=== PATIENT | male | born 1950 | race Caucasian/White ===

== ENCOUNTER → 2018-10-05 | Outpatient (CLI) | payer OTHER ==
--- NOTE | 2018-10-05 16:11 | Diagnostic Imaging Report ---
CT MAXIO FAC/PARANAS WO HISTORY: Chronic sinusitis COMPARISON: None. TECHNIQUE: CT of the sinuses was performed without intravenous contrast. Coronal and sagittal reformations were created. One or more of the following dose reduction techniques were used: Automated exposure control, adjustment of the mA and/or kV according to patient size, and/or utilization of iterative reconstruction technique. DISCUSSION: There is mild mucosal thickening along the bilateral maxillary sinus floors, right greater than left. Associated dental implants slightly protrude into the bilateral maxillary sinuses. Otherwise, the paranasal sinuses, major drainage pathways, and nasal cavities are clear. Other: Nasal septum: At midline. Agger Nasi: Clear bilaterally. Turbinates: Non-aerated bilaterally. [place] cells: None. Lamina papyracea: Mild deformity of the right lamina papyracea may be from remote trauma. Small amount of intraorbital fat and the right medial rectus muscle slightly protrude into the lamina papyracea defect. Cribriform plates: Symmetric. Up to 4 mm deep to the fovea ethmoidalis. Olfactory recesses: Clear. Optic canals: Not dehiscent. [place]odi cells: None. Sphenoid sinuses: The lateral recesses are not aerated. The sphenoid septum is deviated to the right and inserts on the right internal carotid artery osseous covering. The internal carotid arteries slightly bulge into the sphenoid sinuses. The internal carotid arteries are from the sphenoid sinuses by a thin plate of bone (measuring up to 1 mm). Orbits: Both ocular lenses are thinned. Intracranial compartment: Minimal carotid siphon and intradural vertebral artery calcification. Temporal bones: Unremarkable. 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 Nonaggressive groundglass lesion in the right basisphenoid (at the base of the pterygoid plates) measures up to 2 cm in transverse dimension. Soft tissues: Unremarkable. IMPRESSION: 1. Mild mucosal thickening along the bilateral maxillary sinus floors, right greater than left. Associated dental implants slightly protrude into the bilateral maxillary sinuses. 2. Otherwise, the paranasal sinuses, major drainage pathways, and nasal cavities are clear. 3. 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 Signed by: Dr. Lopez León M.D. on 10/05/2018 4:07 PM
== END ==
LOC: CT 10:36
PROVIDERS: ATTEND Family Medicine
DX: J32.9 Chronic sinusitis, unspecified (principal)
CPT/HCPCS: 70486

== ENCOUNTER → 2020-08-23 | Day surgery (SDC) | payer MEDICARE, OTHER ==
[2020-08-21 14:31] LABS: INR 0.9; PROTHROMBIN TIME 12.7 seconds (11.9-14.5)
[2020-08-21 14:32] LABS: PARTIAL THROMBOPLASTIN TIME 29.4 seconds (23.8-35.5)
[2020-08-21 14:36] LABS: BLOOD UREA NITROGEN 13 mg/dL (7-26); BUN/CREATININE RATIO 16 (6-25); CALCIUM 9.3 mg/dL (8.4-10.2); CARBON DIOXIDE 29 mmol/L (22-29); CHLORIDE 99 mmol/L (98-107); EST GLOMERULAR FILTRATION RATE > 60 ML/MIN (60-); GLUCOSE 175 mg/dL (74-118); SODIUM 139 mmol/L (136-145)
[2020-08-21 14:43] LABS: BASOPHILS # (AUTO) 0.1 (0.0-0.1); BASOPHILS % 0.6 % (0.0-1.0); EOSINOPHILS # (AUTO) 0.2 (0.0-0.4); EOSINOPHILS % 1.2 % (0.0-6.0); HEMOGLOBIN 15.9 g/dL (14.0-18.0); LYMPHOCYTES # (AUTO) 3.4 (1.0-3.2); LYMPHOCYTES % 24.6 % (18.0-39.1); MEAN CORPUSCULAR HEMOGLOBIN 33.5 pg (28-32); MEAN CORPUSCULAR HGB CONC 33.8 g/dL (31-35); MEAN CORPUSCULAR VOLUME 98.9 fL (81-99); MONOCYTES # (AUTO) 0.9 (0.2-0.8); MONOCYTES % 6.6 % (4.4-11.3); NEUTROPHILS # (AUTO) 9.2 (2.1-6.9); NEUTROPHILS % 66.4 % (38.7-80.0); PLATELET COUNT 172 x10e3/uL (140-360); RED BLOOD COUNT 4.75 x10e6/uL (4.3-5.7); RED CELL DISTRIBUTION WIDTH 12.7 % (11.7-14.4)
[~2020-08-23] MED LIST: ACETAMINOPHEN 1000 MG/100 ML 100 ML IV ONE; ACETAMINOPHEN 325 MG TAB PO PRN; ASPIRIN EC81 MG PO; ATORVASTATIN CA20 MG PO; CARISOPRODOL 350 MG TAB PO PRN; CEFAZOLIN SOD 1 GM/NS 50ML 100 ML IV ONE; DEXAMETHASONE SOD PHOS INJ 4 MG/ML VIAL ONE; FENTANYL CITRATE/PF 100MCG/2 ML INJ ONE; HYDROCODON-ACE1 EA12 PO; HYDROMORPHONE 2MG/ML 2 MG/ML ML IV PRN; IBUPROFEN 800MG/ 200ML 200 ML IV ONE; LACTATED RINGER'S 1,000 ML IV SCH; LIDOCAINE 1% W/EPINEPHRINE 20 ML VIAL ONE; LIDOCAINE HCL (LTA) 4 ML SOLN ONE; LIDOCAINE HCL 2% JELLY 5 ML TUBE ONE; LIDOCAINE HCL 2% LOCAL INJ 5 ML SDV VIAL INJ ONE; MAGNESIUM/ALUMINUM/SIMETHICONE 30 ML UDC PO PRN; MORPHINE SULFATE INJ 4 MG/ML INJ 1ML IM PRN; ONDANSETRON HCL INJ 2MG/ML 2ML 2 MG/ML VIAL IV PRN; ONDANSETRON HCL INJ 2MG/ML 2ML 2 MG/ML VIAL ONE; OXYCODONE/ACETAMINOPHEN 5-325 1 EACH TABLET PO PRN; PROMETHAZINE HCL (IM) 25 MG/ML VIAL IM PRN; PROPOFOL IV EMULSION 10 MG/ML 20 ML VIAL ONE; ROCURONIUM BROMIDE 10 MG/ML 5ML VIAL IV ONE; SEVOFLURANE INHAL SOLN 250 ML PEN BTL ONE; SUGAMMADEX SODIUM 200 MG/2 ML VIAL IV ONE; THROMBIN FOR SOLN 5,000 UNIT VIAL ONE; VANCOMYCIN HCL 1 GM VIAL ONE; ZIAC 5-6.25 MG1 EACH PO; ZOLPIDEM TARTRATE 5 MG TAB PO PRN
[2020-08-23 09:50] VITALS: BP 141/85
== END | disposition home or self-care (01) ==
LOC: OR 05:24
PROVIDERS: ATTEND Neurological Surgery
DX: M51.16 Intervertebral disc disorders with radiculopathy, lumbar region (principal); F17.210 Nicotine dependence, cigarettes, uncomplicated; Z86.73 Personal history of transient ischemic attack (TIA), and cerebral infarction without residual deficits; R53.1 Weakness; J44.9 Chronic obstructive pulmonary disease, unspecified; I10 Essential (primary) hypertension; I71.9 Aortic aneurysm of unspecified site, without rupture; E78.5 Hyperlipidemia, unspecified; Z01.810 Encounter for preprocedural cardiovascular examination; Z01.812 Encounter for preprocedural laboratory examination; Z01.818 Encounter for other preprocedural examination; Z20.822 Contact with and (suspected) exposure to COVID-19; Z79.82 Long term (current) use of aspirin
CPT/HCPCS: 36415; 63056; 71046; 72020; 80048; 85025; 85610; 85730; 86850; 86900; 88304; 88311; 93005; J0131; J0690; J1100; J2001 ×2; J2405; J2704; J3010; J3370; U0002

== ENCOUNTER 2021-03-02 10:45 | Emergency (ER) | payer MEDICARE, OTHER ==
[~2021-03-02] VITALS: Ht 190.5 cm; Wt 95.3 kg
[~2021-03-02 10:45] MED LIST changes: -ACETAMINOPHEN 1000 MG/100 ML 100 ML IV ONE; -ACETAMINOPHEN 325 MG TAB PO PRN; -CARISOPRODOL 350 MG TAB PO PRN; -CEFAZOLIN SOD 1 GM/NS 50ML 100 ML IV ONE; -DEXAMETHASONE SOD PHOS INJ 4 MG/ML VIAL ONE; -FENTANYL CITRATE/PF 100MCG/2 ML INJ ONE; -HYDROMORPHONE 2MG/ML 2 MG/ML ML IV PRN; -IBUPROFEN 800MG/ 200ML 200 ML IV ONE; -LACTATED RINGER'S 1,000 ML IV SCH; -LIDOCAINE 1% W/EPINEPHRINE 20 ML VIAL ONE; -LIDOCAINE HCL (LTA) 4 ML SOLN ONE; -LIDOCAINE HCL 2% JELLY 5 ML TUBE ONE; -LIDOCAINE HCL 2% LOCAL INJ 5 ML SDV VIAL INJ ONE; -MAGNESIUM/ALUMINUM/SIMETHICONE 30 ML UDC PO PRN; -MORPHINE SULFATE INJ 4 MG/ML INJ 1ML IM PRN; -ONDANSETRON HCL INJ 2MG/ML 2ML 2 MG/ML VIAL IV PRN; -ONDANSETRON HCL INJ 2MG/ML 2ML 2 MG/ML VIAL ONE; -OXYCODONE/ACETAMINOPHEN 5-325 1 EACH TABLET PO PRN; -PROMETHAZINE HCL (IM) 25 MG/ML VIAL IM PRN; -PROPOFOL IV EMULSION 10 MG/ML 20 ML VIAL ONE; -ROCURONIUM BROMIDE 10 MG/ML 5ML VIAL IV ONE; -SEVOFLURANE INHAL SOLN 250 ML PEN BTL ONE; -SUGAMMADEX SODIUM 200 MG/2 ML VIAL IV ONE; -THROMBIN FOR SOLN 5,000 UNIT VIAL ONE; -VANCOMYCIN HCL 1 GM VIAL ONE; -ZOLPIDEM TARTRATE 5 MG TAB PO PRN
[2021-03-02] MEDS ORDERED: CASIRIVIMAB/IMDEVIMAB 10 ML in SODIUM CHLORIDE 0.9% 100 ML IV ONE (11:30)
== END 2021-03-02 12:07 | disposition home or self-care (01) ==
LOC: ER 11:25
DX: R05 Cough (principal); U07.1 COVID-19; I10 Essential (primary) hypertension; F17.210 Nicotine dependence, cigarettes, uncomplicated
CPT/HCPCS: 99283; J7050

== ENCOUNTER → 2022-09-18 | Day surgery (SDC) | payer MEDICARE ==
[2022-09-11 12:00] LABS: BASOPHILS # (AUTO) 0.1 (0.0-0.1); BASOPHILS % 0.7 % (0.0-1.0); EOSINOPHILS # (AUTO) 0.3 (0.0-0.4); EOSINOPHILS % 2.1 % (0.0-6.0); HEMATOCRIT 41.2 % (38.2-49.6); HEMOGLOBIN 13.9 g/dL (14.0-18.0); LYMPHOCYTES # (AUTO) 3.5 (1.0-3.2); LYMPHOCYTES % 28.7 % (18.0-39.1); MEAN CORPUSCULAR HEMOGLOBIN 33.7 pg (28-32); MEAN CORPUSCULAR HGB CONC 33.7 g/dL (31-35); MEAN CORPUSCULAR VOLUME 99.8 fL (81-99); MONOCYTES % 8.4 % (4.4-11.3); NEUTROPHILS # (AUTO) 7.2 (2.1-6.9); NEUTROPHILS % 59.8 % (38.7-80.0); PLATELET COUNT 198 x10e3/uL (140-360); RED BLOOD COUNT 4.13 x10e6/uL (4.3-5.7); RED CELL DISTRIBUTION WIDTH 12.6 % (11.7-14.4)
[~2022-09-18] MED LIST changes: +CENTRUM SILVER1 EAC6; +DIOVAN80 MG PO; +FENTANYL CITRATE/PF 100MCG/2 ML INJ ONE; +LACTATED RINGER'S 1,000 ML ONE; +LIDOCAINE HCL 2% LOCAL INJ 5 ML SDV VIAL INJ ONE; +METAMUCIL FIBE3.4 GM PO; +PROBIOTIC & AC1 EACH PO; +PROPOFOL IV EMULSION 10 MG/ML 20 ML VIAL ONE; +TRELEGY ELLIPT1 EACH; +XARELTO10 MG PO
[2022-09-18 08:30] VITALS: BP 135/75
== END | disposition home or self-care (01) ==
LOC: OR 07:26
PROVIDERS: ATTEND Internal Medicine Gastroenterology
DX: R93.3 Abnormal findings on diagnostic imaging of other parts of digestive tract (principal); K22.2 Esophageal obstruction; Z86.010 Personal history of colon polyps; I10 Essential (primary) hypertension; F17.210 Nicotine dependence, cigarettes, uncomplicated; Z79.82 Long term (current) use of aspirin; Z79.02 Long term (current) use of antithrombotics/antiplatelets; Z79.899 Other long term (current) drug therapy
CPT/HCPCS: 36415; 43239; 85025; 88305; 88312; 93005; J2001; J2704; J3010; J7121

== ENCOUNTER → 2022-09-24 | Outpatient (CLI) | payer MEDICARE ==
[~2022-09-24] MED LIST changes: -FENTANYL CITRATE/PF 100MCG/2 ML INJ ONE; -LACTATED RINGER'S 1,000 ML ONE; -LIDOCAINE HCL 2% LOCAL INJ 5 ML SDV VIAL INJ ONE; -PROPOFOL IV EMULSION 10 MG/ML 20 ML VIAL ONE
== END ==
LOC: DX 11:57
PROVIDERS: ATTEND Internal Medicine Gastroenterology
DX: R93.3 Abnormal findings on diagnostic imaging of other parts of digestive tract (principal)
CPT/HCPCS: 74220